=== PATIENT | female | born 1930 | race Asian ===

== ENCOUNTER 2017-03-07 13:10 | Inpatient (IN) | payer MEDICARE, OTHER ==
[2017-03-07] VITALS (8 sets, daily range): BP systolic 66–125; BP diastolic 44–89
[~2017-03-07] VITALS: Ht 154.9 cm; Wt 65.4 kg
[2017-03-07 14:03] LABS: PLATELET COUNT 166 x10^3mcL (130-400)
[2017-03-07 14:16] LABS: UA SPECIFIC GRAVITY >=1.030 (1.005-1.035); microscopic required? YES; urine erythrocyte NEGATIVE (NEGATIVE)
[2017-03-07 14:23] LABS: BAND NEUTROPHIL 6 % (0-10); BASOPHIL 0 % (0-2); SEGMENTED NEUTROPHILS 87 % (37-75)
[2017-03-07 14:24] LABS: PLATELET MORPHOLOGY PLATELETS NORMAL; rbc morphology (normal/abnorm) NORMAL (NORMAL)
[2017-03-07 14:30] LABS: ALKALINE PHOSPHATASE 45 U/L (46-116); ALT/SGPT 26 U/L (14-59); AST/SGOT 24 U/L (15-37); CALCIUM 10.1 mg/dL (8.5-10.1); CARBON DIOXIDE 27.4 mmol/L (21-32); CHLORIDE SERUM 118 mmol/L (98-107); GLUCOSE SERUM 319 mg/dL (74-106); POTASSIUM SERUM 4.1 mmol/L (3.5-5.1); SODIUM SERUM 156 mmol/L (136-145); TOTAL PROTEIN, SERUM 6.6 g/dL (6.4-8.2)
[2017-03-07 14:40] LABS: T4(THYROXINE) 6.3 ug/dL (4.7-13.3)
[2017-03-07] MEDS ORDERED: LIPI10 PO (16:03)
[2017-03-07] MEDS ORDERED: DONEPEZIL HYDRO10 M2 PO (16:04)
[2017-03-07] MEDS ORDERED: ZOLOFT50 MG PO (16:04)
[2017-03-07] MEDS ORDERED: FIBER625 MG PO (16:04)
[2017-03-07] MEDS ORDERED: NORVASC2.5 MG PO (16:04)
[2017-03-07] MEDS ORDERED: ASPIR 8181 MG PO (16:05)
[2017-03-07] MEDS ORDERED: CALCIUM 600600 M3 PO (16:05)
[2017-03-07] MEDS ORDERED: HCTZ/LISINOPRIL1 TA1 PO (16:06)
[2017-03-07] MEDS ORDERED: SENNA8.6 M2 PO (16:06)
[2017-03-07 16:46] LABS: CHOLESTEROL/HDL RATIO 2.8
[2017-03-07 21:04] LABS: CARBON DIOXIDE 24.3 mmol/L (21-32); CHLORIDE SERUM 121 mmol/L (98-107); CREATININE SERUM 2.7 mg/dL (0.6-1.0); GLUCOSE SERUM 242 mg/dL (74-106); SODIUM SERUM 155 mmol/L (136-145)
[2017-03-07 21:06] LABS: PLATELET COUNT 117 x10^3mcL (130-400); RED CELL DISTRIBUTION WIDTH 14.8 % (11.5-14.5)
[2017-03-07 21:13] LABS: POTASSIUM SERUM 2.9 mmol/L (3.5-5.1)
[2017-03-07 21:21] LABS: BAND NEUTROPHIL 4 % (0-10); BASOPHIL 0 % (0-2); MONOCYTE 2 % (0-7); SEGMENTED NEUTROPHILS 72 % (37-75)
[2017-03-07 21:22] LABS: rbc morphology (normal/abnorm) NORMAL (NORMAL)
[2017-03-08] VITALS (19 sets, daily range): BP systolic 91–118; BP diastolic 41–69
[2017-03-08 02:47] LABS: CALCIUM 7.6 mg/dL (8.5-10.1); CARBON DIOXIDE 21.2 mmol/L (21-32); CHLORIDE SERUM 120 mmol/L (98-107); CREATININE SERUM 2.6 mg/dL (0.6-1.0); GLUCOSE SERUM 296 mg/dL (74-106); MAGNESIUM 2.1 mg/dL (1.8-2.4); PHOSPHOROUS 2.3 mg/dL (2.5-4.9); SODIUM SERUM 151 mmol/L (136-145)
[2017-03-08 02:51] LABS: POTASSIUM SERUM 5.9 mmol/L (3.5-5.1)
[2017-03-08 03:20] LABS: PLATELET COUNT 129 x10^3mcL (130-400); RED CELL DISTRIBUTION WIDTH 14.7 % (11.5-14.5)
[2017-03-08 03:30] LABS: SEGMENTED NEUTROPHILS 35 % (37-75)
[2017-03-08 03:31] LABS: BAND NEUTROPHIL 45 % (0-10)
[2017-03-08 03:33] LABS: MONOCYTE 4 % (0-7)
[2017-03-08 03:34] LABS: rbc morphology (normal/abnorm) NORMAL (NORMAL)
[2017-03-08 03:35] LABS: PLATELET MORPHOLOGY PLATELETS DECREASED
[2017-03-08 06:15] LABS: CALCIUM 7.7 mg/dL (8.5-10.1); CARBON DIOXIDE 20.9 mmol/L (21-32); CHLORIDE SERUM 118 mmol/L (98-107); CREATININE SERUM 2.6 mg/dL (0.6-1.0); GLUCOSE SERUM 381 mg/dL (74-106); POTASSIUM SERUM 3.1 mmol/L (3.5-5.1); SODIUM SERUM 152 mmol/L (136-145)
[2017-03-09] VITALS (18 sets, daily range): BP systolic 90–120; BP diastolic 40–60
[2017-03-09 05:29] LABS: RED CELL DISTRIBUTION WIDTH 14.5 % (11.5-14.5)
[2017-03-09 05:38] LABS: PLATELET COUNT 107 x10^3mcL (130-400)
[2017-03-09 05:49] LABS: CALCIUM 7.2 mg/dL (8.5-10.1); CARBON DIOXIDE 24.2 mmol/L (21-32); CHLORIDE SERUM 106 mmol/L (98-107); CREATININE SERUM 1.5 mg/dL (0.6-1.0); GLUCOSE SERUM 350 mg/dL (74-106); MAGNESIUM 1.9 mg/dL (1.8-2.4); PHOSPHOROUS 2.4 mg/dL (2.5-4.9); SODIUM SERUM 139 mmol/L (136-145)
[2017-03-09 05:51] LABS: POTASSIUM SERUM 2.5 mmol/L (3.5-5.1)
[2017-03-09 06:06] LABS: BAND NEUTROPHIL 17 % (0-10); METAMYELOCTE 7 % (0-2); MONOCYTE 3 % (0-7); SEGMENTED NEUTROPHILS 60 % (37-75)
[2017-03-09 06:08] LABS: rbc morphology (normal/abnorm) NORMAL (NORMAL)
[2017-03-10] VITALS (13 sets, daily range): BP systolic 100–117; BP diastolic 37–64
[2017-03-10 05:40] LABS: BASOPHIL % 0.5 % (0-2); RED CELL DISTRIBUTION WIDTH 14.5 % (11.5-14.5)
[2017-03-10 05:48] LABS: PLATELET COUNT 110 x10^3mcL (130-400)
[2017-03-10 05:51] LABS: CALCIUM 7.6 mg/dL (8.5-10.1); CARBON DIOXIDE 26.3 mmol/L (21-32); CHLORIDE SERUM 104 mmol/L (98-107); CREATININE SERUM 1.2 mg/dL (0.6-1.0); GLUCOSE SERUM 262 mg/dL (74-106); MAGNESIUM 1.7 mg/dL (1.8-2.4); PHOSPHOROUS 2.7 mg/dL (2.5-4.9); POTASSIUM SERUM 3.2 mmol/L (3.5-5.1); SODIUM SERUM 138 mmol/L (136-145)
[2017-03-11] VITALS (17 sets, daily range): BP systolic 91–123; BP diastolic 45–94
[2017-03-11 06:05] LABS: RED CELL DISTRIBUTION WIDTH 14.4 % (11.5-14.5)
[2017-03-11 06:06] LABS: PLATELET COUNT 98 x10^3mcL (130-400)
[2017-03-11 06:27] LABS: CALCIUM 7.4 mg/dL (8.5-10.1); CARBON DIOXIDE 26.6 mmol/L (21-32); CHLORIDE SERUM 104 mmol/L (98-107); CREATININE SERUM 0.9 mg/dL (0.6-1.0); GLUCOSE SERUM 143 mg/dL (74-106); PHOSPHOROUS 2.4 mg/dL (2.5-4.9); POTASSIUM SERUM 3.3 mmol/L (3.5-5.1); SODIUM SERUM 138 mmol/L (136-145)
[2017-03-11 06:36] LABS: BAND NEUTROPHIL 5 % (0-10); METAMYELOCTE 2 % (0-2); MONOCYTE 3 % (0-7); SEGMENTED NEUTROPHILS 77 % (37-75)
[2017-03-11 06:38] LABS: PLATELET MORPHOLOGY PLATELETS DECREASED; rbc morphology (normal/abnorm) NORMAL (NORMAL)
[2017-03-12] VITALS (19 sets, daily range): BP systolic 84–137; BP diastolic 49–73
[2017-03-12 05:00] LABS: CALCIUM 7.5 mg/dL (8.5-10.1); CARBON DIOXIDE 25.4 mmol/L (21-32); CHLORIDE SERUM 106 mmol/L (98-107); CREATININE SERUM 0.8 mg/dL (0.6-1.0); GLUCOSE SERUM 129 mg/dL (74-106); MAGNESIUM 2.1 mg/dL (1.8-2.4); PHOSPHOROUS 3.5 mg/dL (2.5-4.9); SODIUM SERUM 138 mmol/L (136-145)
[2017-03-12 05:04] LABS: ALBUMIN 1.2 g/dL (3.4-5.0)
[2017-03-12 05:09] LABS: PLATELET COUNT 85 x10^3mcL (130-400); RED CELL DISTRIBUTION WIDTH 14.7 % (11.5-14.5)
[2017-03-12 06:06] LABS: BAND NEUTROPHIL 3 % (0-10); METAMYELOCTE 1 % (0-2); MONOCYTE 6 % (0-7); SEGMENTED NEUTROPHILS 79 % (37-75)
[2017-03-12 06:08] LABS: PLATELET MORPHOLOGY PLATELETS DECREASED; rbc morphology (normal/abnorm) NORMAL (NORMAL)
[2017-03-13] VITALS (16 sets, daily range): BP systolic 94–138; BP diastolic 56–73
[2017-03-13 05:23] LABS: BASOPHIL % 1.8 % (0-2)
[2017-03-13 05:25] LABS: PLATELET COUNT 100 x10^3mcL (130-400); RED CELL DISTRIBUTION WIDTH 15.1 % (11.5-14.5)
[2017-03-13 05:43] LABS: CALCIUM 7.3 mg/dL (8.5-10.1); CARBON DIOXIDE 26.5 mmol/L (21-32); CHLORIDE SERUM 105 mmol/L (98-107); CREATININE SERUM 0.9 mg/dL (0.6-1.0); GLUCOSE SERUM 167 mg/dL (74-106); MAGNESIUM 1.8 mg/dL (1.8-2.4); SODIUM SERUM 138 mmol/L (136-145)
[2017-03-14] VITALS (18 sets, daily range): BP systolic 99–142; BP diastolic 56–87
[2017-03-14 05:46] LABS: CALCIUM 7.9 mg/dL (8.5-10.1); CARBON DIOXIDE 28.7 mmol/L (21-32); CHLORIDE SERUM 106 mmol/L (98-107); CREATININE SERUM 0.9 mg/dL (0.6-1.0); GLUCOSE SERUM 140 mg/dL (74-106); PHOSPHOROUS 4.1 mg/dL (2.5-4.9); POTASSIUM SERUM 3.6 mmol/L (3.5-5.1); SODIUM SERUM 143 mmol/L (136-145)
[2017-03-14 05:50] LABS: BASOPHIL % 0.1 % (0-2); PLATELET COUNT 137 x10^3mcL (130-400); RED CELL DISTRIBUTION WIDTH 14.8 % (11.5-14.5)
[2017-03-15] VITALS (19 sets, daily range): BP systolic 82–159; BP diastolic 39–101
[2017-03-15 04:59] LABS: BASOPHIL % 0.2 % (0-2); PLATELET COUNT 171 x10^3mcL (130-400); RED CELL DISTRIBUTION WIDTH 14.6 % (11.5-14.5)
[2017-03-16] VITALS (7 sets, daily range): BP systolic 109–155; BP diastolic 56–82; Ht 154.9 cm; Wt 65.4 kg
[2017-03-16 05:24] LABS: BASOPHIL % 0.4 % (0-2); PLATELET COUNT 231 x10^3mcL (130-400)
[2017-03-16 05:26] LABS: RED CELL DISTRIBUTION WIDTH 14.8 % (11.5-14.5)
[2017-03-16 05:42] LABS: CALCIUM 8.3 mg/dL (8.5-10.1); CARBON DIOXIDE 30.3 mmol/L (21-32); CHLORIDE SERUM 107 mmol/L (98-107); CREATININE SERUM 0.7 mg/dL (0.6-1.0); GLUCOSE SERUM 168 mg/dL (74-106); MAGNESIUM 1.9 mg/dL (1.8-2.4); PHOSPHOROUS 3.1 mg/dL (2.5-4.9); POTASSIUM SERUM 3.2 mmol/L (3.5-5.1); SODIUM SERUM 145 mmol/L (136-145)
== END 2017-03-16 14:20 | disposition expired | DRG 870 ==
LOC: ED 13:10 → IC 15:30
PROVIDERS: Emergency Medicine; Family Medicine; ADMIT Family Medicine
PROC: 5A1955Z Respiratory Ventilation, Greater than 96 Consecutive Hours (ICD-10-PCS; principal; 2017-03-07)
PROC: 0BH17EZ Insertion of Endotracheal Airway into Trachea, Via Natural or Artificial Opening (ICD-10-PCS; 2017-03-07)
PROC: 05HM33Z Insertion of Infusion Device into Right Internal Jugular Vein, Percutaneous Approach (ICD-10-PCS; 2017-03-07)
PROC: B543ZZA Ultrasonography of Right Jugular Veins, Guidance (ICD-10-PCS; 2017-03-07)
DX: A41.9 Sepsis, unspecified organism (principal); J96.01 Acute respiratory failure with hypoxia; J69.0 Pneumonitis due to inhalation of food and vomit; N17.0 Acute kidney failure with tubular necrosis; I50.43 Acute on chronic combined systolic (congestive) and diastolic (congestive) heart failure; G93.41 Metabolic encephalopathy; R65.21 Severe sepsis with septic shock; E43 Unspecified severe protein-calorie malnutrition; E87.0 Hyperosmolality and hypernatremia; E87.2 Acidosis; I24.8 Other forms of acute ischemic heart disease; D68.69 Other thrombophilia; E11.65 Type 2 diabetes mellitus with hyperglycemia; E11.51 Type 2 diabetes mellitus with diabetic peripheral angiopathy without gangrene; M81.0 Age-related osteoporosis without current pathological fracture; M62.50 Muscle wasting and atrophy, not elsewhere classified, unspecified site; D69.6 Thrombocytopenia, unspecified; F01.50 Vascular dementia, unspecified severity, without behavioral disturbance, psychotic disturbance, mood disturbance, and anxiety; I10 Essential (primary) hypertension; E87.8 Other disorders of electrolyte and fluid balance, not elsewhere classified; E78.5 Hyperlipidemia, unspecified; Z91.81 History of falling; Z74.01 Bed confinement status; Z79.82 Long term (current) use of aspirin; Z68.23 Body mass index [BMI] 23.0-23.9, adult; Z79.84 Long term (current) use of oral hypoglycemic drugs; Z86.718 Personal history of other venous thrombosis and embolism; Z86.73 Personal history of transient ischemic attack (TIA), and cerebral infarction without residual deficits
CPT/HCPCS: 36556; 36600; 83880; A4628; C9113; J0330; J0696; J1642; J1644; J1815; J1940; J1956; J2060; J2250; J2270; J2543; J2704; J3010; J3475; J3480; J3490; J7030; J7040; J7050; J7620; J7626; Q0092